=== PATIENT | female | born 1990 | race Caucasian/White ===

== ENCOUNTER 2018-07-27 21:51 | Emergency (ER) | payer OTHER ==
[~2018-07-27] VITALS: Ht 162.6 cm; Wt 81.6 kg
--- NOTE | 2018-07-27 23:00 | NUR ---
Dr. Villafuerte at bedside for MSE.
[2018-07-27] MEDS ORDERED: IBUPROFEN 800 MG TABLET ONE (23:12)
[2018-07-27] MEDS ORDERED: IBUPROFEN 800 MG TABLET PO ONE (23:15)
--- NOTE | 2018-07-27 23:19 | NUR ---
Xray at bedside.
--- NOTE | 2018-07-28 01:30 | NUR ---
Pt out of ER for CT.
--- NOTE | 2018-07-28 01:43 | NUR ---
Pt back to ER from CT.
--- NOTE | 2018-07-28 02:41 | NUR ---
Patient discharged to home in stable conditon. Written and verbal after care instructions given. Patient verbalizes understanding of instructions. Pt ambulated out of ER with steady gait, no acute signs of distress, VSS, all belongings taken.
[2018-07-28 02:44] VITALS: BP 110/80
== END 2018-07-28 02:44 | disposition home or self-care (01) ==
LOC: ER 21:52
DX: S13.4XXA Sprain of ligaments of cervical spine, initial encounter (principal); S63.502A Unspecified sprain of left wrist, initial encounter; S30.1XXA Contusion of abdominal wall, initial encounter; F17.200 Nicotine dependence, unspecified, uncomplicated; V49.9XXA Car occupant (driver) (passenger) injured in unspecified traffic accident, initial encounter; Y93.89 Activity, other specified; Y92.89 Other specified places as the place of occurrence of the external cause; Y99.8 Other external cause status
CPT/HCPCS: 70450; 72125; 73090; 73130; A4663